=== PATIENT | female | born 1960 | race Caucasian/White ===

== ENCOUNTER 2022-06-08 05:21 | Emergency (ER) | payer OTHER, SELFPAY ==
[2022-06-08 05:30] VITALS: BP 126/70; PULSE 89; RESP 14; TEMP 37.4; O2SAT 96; BMI 28.3
--- NOTE | 2022-06-08 06:15 | ED.GENADULT ---
HPI - General Adult General Chief complaint: Back Injury/Pain Stated complaint: Covid +,Back Pain Time Seen by Provider: 06/08/22 05:39 History of Present Illness HPI narrative: 62-year-old woman presenting to the emergency department accompanied by spouse who she called this morning when she tried to get up and just felt herself being lightheaded in pale sweaty. Tested positive for COVID 3 days ago with onset of fatigue and body aches. Fever also at that time of 102+. Has had fevers since. Having increasing low and mid back pain which she attributes somewhat to being in bed for a couple of days. Does hurt more with movement. No radiating pain down her legs no loss of sensation. She notes a history of ?musculoskeletal? back problem where she had gotten very tense or spasms in the past. She is not short of breath has not been coughing really. Had been recommended to be started on when I am suspecting is being referenced is Paxlovid and so here to for confirmatory testing and appropriate screening labs. She has vomited and had diarrhea. No melena hematochezia or hematemesis is described. No dysuria. Does work in affiliated clinic. Related Data Home Medications Medication Instructions Recorded Confirmed citalopram 20 mg tablet mg 06/08/22 Previous Rx's Medication Instructions Recorded ketorolac 10 mg tablet 10 mg PO Q6H PRN pain 5 days #15 06/08/22 tabs nirmatrelvir 300 mg (150 mg x See Rx Instructions PO .COMPLEX 06/08/22 2)-ritonavir 100 mg tablet (EUA) #30 tabs (Paxlovid 300 mg () ondansetron 4 mg disintegrating 4 mg PO Q6H #15 tabs 06/08/22 tablet Allergies Allergy/AdvReac Type Severity Reaction Status Date / Time iodine contrast Allergy Unknown Hives Uncoded 06/08/22 05:42 Review of Systems Status of ROS: Reports: 6 or more systems reviewed and unremarkable except as noted in History and below PFSH PFSH Social History Smoking Status: Current every day smoker What tobacco products do you use: cigarettes How often do you have a drink containing alcohol: never AUDIT-C Alcohol total score: 0 Non-prescribed substance use: denies use Exam Narrative: Exam Narrative: Pleasant. Easily conversant. Breathing easily. Cranial nerves 2-12 intact. Lungs appear to be clear. Cardiovascular with regular rate and rhythm. Distant. Abdomen is soft and nontender normoactive bowel sounds. No masses appreciated Moving all extremities without difficulty. Extremities are without edema. Well perfused peripherally. No loss of sensation. Examination of the back she transitions with some apparent mild discomfort. Is sore to palpation around the SI joints. She indicates also some soreness in the maliha-spinal mid back musculature. Const: Vital Signs, click to edit/add: Vital Signs - 24 hr 06/08/22 05:30 06/08/22 07:23 Temperature 99.3 F 99.3 F Pulse Rate [Pulse Oximeter] 89 80 Respiratory Rate 14 20 Blood Pressure [Ri t Upper Arm] 126/70 120/52 L Pulse Oximetry 96 96 Oxygen Delivery Me thod Room Air Room Air Documenting provider has reviewed patient's vital signs: yes Course Course Hospital Course: We discussed potential treatment course. She would like something for pain. Also IV fluids. She did receive this in the form of normal saline and ketorolac IV. Noted marked improvement in her back discomfort. Was clearly transitioning in the bed/from the bed without notable difficulty. Vital Signs Vital signs: Initial Vital Signs Temperature 99.3 F 06/08/22 05:30 Temperature Source Temporal Artery Scan 06/08/22 05:30 Pulse Rate 89 06/08/22 05:30 Pulse Rhythm 06/08/22 05:30 Respiratory Rate 14 06/08/22 05:30 Blood Pressure 126/70 06/08/22 05:30 Blood Pressure Mean 88 06/08/22 05:30 Blood Pressure Position Sitting 06/08/22 05:30 Pulse Oximetry 96 06/08/22 05:30 Oxygen Delivery Method 06/08/22 05:30 Vital Signs Temperature 99.3 F 06/08/22 05:30 Pulse Rate 89 06/08/22 05:30 Respiratory Rate 14 06/08/22 05:30 Blood Pressure 126/70 06/08/22 05:30 Pulse Oximetry 96 06/08/22 05:30 Oxygen Delivery Method 06/08/22 05:30 Temperature 99.3 F 06/08/22 07:23 Pulse Rate 80 06/08/22 07:23 Respiratory Rate 20 06/08/22 07:23 Blood Pressure 120/52 L 06/08/22 07:23 Pulse Oximetry 96 06/08/22 07:23 Oxygen Delivery Method 06/08/22 07:23 Medical Decision Making MDM Narrative Medical decision making narrative: Stable vitals. Overall improved. Creatinine of 0.9 with a GFR of 72. Is a candidate for Paxlovid. She would like some Ketorolac available if possible. Discussed [id number] options as well. Medical Records Medical records reviewed: Yes I reviewed the patient's medical records Lab Data Lab results reviewed: Yes I reviewed the patient's lab results Labs: Lab Results 06/08/22 06/08/22 Range/Units 06:50 06:50 Sodium 138 (135-149) mmol/L Potassium 3.9 (3.6-5.1) mmol/L Chloride 105 (96-114) mmol/L Carbon Dioxide 25 (20-32) mmol/L BUN 17 (7-30) mg/dL Creatinine 0.9 (0.5-1.5) mg/dL Estimated Creat Clear 48.25 Estimated GFR 72 ml/min Glucose 90 (60-115) mg/dL Calcium 8.7 (8.4-10.6) mg/dL Total Bilirubin 0.2 (0.1-1.5) mg/dL AST 40 H (12-35) U/L ALT 24 (4-35) U/L Alkaline Phosphatase 82 (40-150) U/L Total Protein 7.5 (6.0-8.3) g/dL Albumin 4.1 (3.3-5.0) g/dL Urine Color Yellow (Yellow) Urine Appearance Slightly Cloudy A (Clear) Urine pH 5.5 (5.0-8.5) Ur Specific [place] >= 1.030 (1.000-1.030) Urine Protein 1+ A (Negative) Urine Glucose (UA) Negative (Negative) Urine Ketones 3+ A (Negative) Urine Blood 2+ A (Negative) Urine Nitrite Negative (Negative) Urine Bilirubin 1+ A (Negative) Urine Urobilinogen 0.2 (0.2-1.0) Ur Leukocyte Esterase Negative (Negative) Urine RBC 2-5 A (0-2) Urine WBC 5-10 A (0-5) Ur Squamous Epith Cells Many A (None-Few) Urine Bacteria Few A (None) Discharge Plan Discharge Clinical Impression: SARS-CoV-2 positive, Myalgia Patient Disposition: Home w/ Parent or Adult Condition: Improved Additional Instructions: Yes. Focus on hydration. Can reconstitute Powerade powder or similar for an electrolyte drink. Try to mobilize, stretch your back. If experiencing increasing shortness of breath, gave herself an oxygen saturation monitor return to the emergency department for oxygen saturations of 90% or less. With a little food can take up to 800 mg of ibuprofen per dose. This can be combined with up to 1000 mg of acetaminophen per dose. Alternative to the ibuprofen maybe naproxen up to 500 mg 2 times daily. You are getting the prescription for ketorolac as you asked. Do not take this at the same time dosing as ibuprofen or naproxen. A urine culture should be pending here for you. However I think that most likely the changes in your urine are represented by a some degree of dehydration. I would follow up to recheck your urine again and it weaker to pending results of the culture. Prescriptions: New Paxlovid (EUA) 300 mg (150 mg x 2)-100 mg tablet See Rx Instructions .ROUTE .COMPLEX Qty: 30 0RF Rx Instructions: take TWO 150 mg tablets of nirmatrelvir with ONE 100 mg tablet of ritonavir twice daily for 5 days ondansetron 4 mg tablet,disintegrating 4 mg PO Q6H Qty: 15 0RF ketorolac 10 mg tablet 10 mg PO Q6H PRN (Reason: pain) 5 Days Qty: 15 0RF No Action citalopram 20 mg tablet Follow Up/Referrals: Provider,Not a Local [Primary Care Provider] - Stand Alone Forms: [employer] Info Instructions
[2022-06-08] MEDS: 0.9 % SODIUM CHLORIDE 1000 ml 1,000 ML IV (06:55)
[2022-06-08] MEDS: KETOROLAC 15 MG/ML inj 30 MG IVP (06:55)
--- NOTE | 2022-06-08 07:16 | ED.NURSE ---
Lab confirms positive COVID test through [facility] on 06/05/22. Pt resting on cot, call light within reach. IVF infusing. Pt aware of need for UA, agrees to call when able to provide sample. Report given to DAWSON Hernandez.
[2022-06-08 07:17] LABS: Albumin* 4.1 g/dL (3.3-5.0); Chloride* 105 mmol/L (96-114); Potassium* 3.9 mmol/L (3.6-5.1); Sodium* 138 mmol/L (135-149)
[2022-06-08 07:19] LABS: Bilirubin Total* 0.2 mg/dL (0.1-1.5); Carbon Dioxide* 25 mmol/L (20-32); Creatinine* 0.9 mg/dL (0.5-1.5); Est. Creatinine Clearance* 48.25; Estimated Glomerular Filt Rate 72 ml/min; Total Protein* 7.5 g/dL (6.0-8.3)
[2022-06-08 07:20] LABS: Alanine Aminotransferase* 24 U/L (4-35); Alkaline Phosphatase* 82 U/L (40-150); Aspartate Amino Transferase* 40 U/L (12-35); Blood Urea Nitrogen* 17 mg/dL (7-30); Calcium* 8.7 mg/dL (8.4-10.6); Glucose* 90 mg/dL (60-115)
[2022-06-08 07:23] VITALS: BP 120/52; PULSE 80; RESP 20; TEMP 37.4; O2SAT 96
[2022-06-08 07:37] LABS: Appearance Urine Slightly Cloudy (Clear); Bilirubin Urine 1+ (Negative); Blood Urine 2+ (Negative); Color Urine Yellow (Yellow); Glucose Urine Negative (Negative); Ketones Urine 3+ (Negative); Leukocyte Esterase Urine Negative (Negative); Nitrite Urine Negative (Negative); Protein Urine 1+ (Negative); Specific Gravity Urine >= 1.030 (1.000-1.030); Urobilinogen Urine 0.2 (0.2-1.0); pH Urine 5.5 (5.0-8.5)
[2022-06-08 08:00] LABS: Bacteria Urine Few; Squamous Epithelial Cell Urine Many (None-Few)
== END 2022-06-08 08:20 | disposition home or self-care (01) ==
PROVIDERS: Emergency Provider Family Medicine
DX: U07.1 COVID-19 (principal); M79.10 Myalgia, unspecified site
CPT/HCPCS: 36415; 80053; 81003; 81015; 87086; 87635; 96374; 99283; 99284; J1885; J7030

== ENCOUNTER 2025-08-06 09:31 | Outpatient (CLI) | payer OTHER, SELFPAY | END 2025-08-06 09:32 | disposition home or self-care (01) | PROVIDERS: PCP Family Medicine; Visit Provider Family Medicine | DX: F33.42 Major depressive disorder, recurrent, in full remission (principal); M85.80 Other specified disorders of bone density and structure, unspecified site; E78.5 Hyperlipidemia, unspecified; Z86.0100 Personal history of colon polyps, unspecified; Z86.39 Personal history of other endocrine, nutritional and metabolic disease | CPT/HCPCS: 80053; 80061; 82306; 84443 ==